=== PATIENT | female | born 1970 | race Caucasian/White ===

== ENCOUNTER 2020-10-13 09:47 | Emergency (ER) | payer BC, SELFPAY ==
[~2020-10-13] VITALS: Ht 170.2 cm; Wt 81.6 kg
[2020-10-13 09:59] VITALS: BP_SYST 114
[2020-10-13 11:15] VITALS: BP_SYST 115
== END 2020-10-13 17:09 | disposition home or self-care (01) ==
LOC: SED 09:47
DX: U07.1 COVID-19 (principal); J12.89 Other viral pneumonia; I10 Essential (primary) hypertension; Z88.6 Allergy status to analgesic agent
CPT/HCPCS: 71045; 99283